=== PATIENT | female | born 1995 | race Hispanic/Latino ===

== ENCOUNTER 2021-04-24 21:07 | Emergency (ER) | payer SELFPAY ==
[2021-04-24] MEDS ORDERED: Metoclopramide HCl 10 MG/2 ML VIAL ONE (21:39)
[2021-04-24] MEDS ORDERED: diphenhydrAMINE 50 MG/ML VIAL ONE (21:39)
[2021-04-24 21:48] LABS: Hemoglobin 12.8 g/dL (12.0-16.0); Mean Corpuscular Hemoglobin 31.1 pg (27.0-31.0); Mean Corpuscular Volume 91.4 fL (78.0-98.0); Platelet Count 260 thou/uL (130-400); RBC Distribution Width 13.5 % (11.5-14.5); Red Blood Cell (RBC) Count 4.12 mill/uL (4.20-5.40)
[2021-04-24 22:06] LABS: Eosinophils 2 % (0-10); Lymphocytes 50 % (21-51); MDiff Complete? YES; Monocytes 2 % (0-10); Neutrophil 46 % (42-75)
[2021-04-24 22:08] LABS: ALT (SGPT) 28 U/L (8-55); AST (SGOT) 17 U/L (5-34); Albumin 3.8 g/dL (3.5-5.0); Alkaline Phosphatase 107 U/L (40-110); Anion Gap 13 mmol/L (10-20); BUN (Urea Nitrogen) 10 mg/dL (7.0-18.7); Bilirubin, Total 0.3 mg/dL (0.2-1.2); CK (CPK) 33 U/L (29-168); Calc. Creatinine Clearance 0 mL/min (70-130); Calcium 8.9 mg/dL (7.8-10.44); Carbon Dioxide 23 mmol/L (22-29); Chloride 111 mmol/L (98-107); Globulin 3.4 g/dL (2.4-3.5); Glucose 88 mg/dL (70-105); Magnesium 1.7 mg/dL (1.6-2.6); Potassium 3.6 mmol/L (3.5-5.1); Protein, Total 7.2 g/dL (6.0-8.3); Sodium 143 mmol/L (136-145)
[2021-04-24] MEDS ORDERED: levETIRAcetam in NS 100 ML ONE (23:30)
== END 2021-04-25 00:58 | disposition home or self-care (01) ==
LOC: ERS 21:07
DX: M79.604 Pain in right leg (principal); M79.605 Pain in left leg; Z86.73 Personal history of transient ischemic attack (TIA), and cerebral infarction without residual deficits
CPT/HCPCS: 70450; 80053; 80177; 82550; 83735; 85025; 93970; 96365; 96375; J1200; J1953; J2765